=== PATIENT | female | born 1950 | race Caucasian/White ===

== ENCOUNTER 2021-08-12 06:16 | Outpatient (CLI) | payer MEDICARE, BC ==
[~2021-08-12] VITALS: Ht 177.8 cm; Wt 68.0 kg
[2021-08-12] VITALS (19 sets, daily range): BP systolic 122–164; BP diastolic 66–93; PULSE 62–81; TEMP 97.9
[~2021-08-12 06:16] MED LIST: ASPIRIN E.C. 8181 MG PO; COREG 6.256.25 MG/TA PO; LEVOXYL0.075 MG PO; LIPITOR 80MG80 MG PO; PEPCID AC 10MG10 MG PO; PLAVIX 75MG TAB75 MG PO
--- NOTE | 2021-08-12 08:01 | NUR ---
Pt to ct per ambulation. Pt placed in prone position on ct table. Monitors applied and O2 on at 2l/nc.
--- NOTE | 2021-08-12 08:37 | NUR ---
Specimens obtained by Dr Luna and placed in formalin. Specimen labeled.
--- NOTE | 2021-08-12 12:46 | NUR ---
pt has had 2nd xray to monitor small pneumo. Dr. Luna has been in to see patient and to discuss discharge instructions with pt and her . Pt is up and amb in room with steady gait after talking to dr. Luna. I reviewed written dc instructions with pt. no questions or concerns at time of departure.
== END 2021-08-12 13:00 | disposition home or self-care (01) ==
LOC: COL.RAD 06:16
DX: C50.511 Malignant neoplasm of lower-outer quadrant of right female breast (principal); J93.9 Pneumothorax, unspecified; R91.8 Other nonspecific abnormal finding of lung field
CPT/HCPCS: J2250; J3010